=== PATIENT | male | born 1990 ===

== ENCOUNTER → 2018-02-14 | Outpatient (REF) | payer BC ==
[2018-02-14 14:41] LABS: SEMEN APPEARANCE OPAQUE (OPAQUE); SEMEN VISCOSITY LIQUID (LIQUID); WBC CONCENTRATION <=1 M/ml (<=1 M/ml)
[2018-02-14 14:42] LABS: % NORMAL FORMS 12 % (>=4); IMMOTILITY 37 %; NON PROGRESSIVE MOTILITY (c) 15 %; PROGRESSIVE MOTILITY (a) 48 % (>=32); SPERM CONCENTRATION 32.8 M/ml (>=15.0); SPERM# 229.4 M/Ejac (>=39); TOTAL MOTILITY 63 % (>=40); TOTAL PROGRESSIVE SPERM 109.6 M/Ejac.
== END ==
LOC: M LAB REF 13:41
DX: N46.9 Male infertility, unspecified (principal)
CPT/HCPCS: 89320